=== PATIENT | female | born 1935 | race Caucasian/White ===

== ENCOUNTER 2023-08-17 11:42 | Inpatient (IN) | payer MEDICARE, OTHER, SELFPAY ==
[2023-08-17] VITALS (12 sets, daily range): BP systolic 96–159; BP diastolic 51–95; BMI 35.2; BMI 27.9
[2023-08-17 06:52] LABS: % Basophils 0.8 % (0-2); % Eosinophils 2.1 % (0-6); % Immature Granulocytes 0.5 % (0-0.5); % Neutrophils 73.6 % (42.2-75.2); Absolute Basophils 0.1 10^3/uL (0-0.2); Absolute Eosinophils 0.2 10^3/uL (0-0.7); Absolute Lymphocytes 1.4 10^3/uL (1.2-3.4); Absolute Monocytes 0.6 10^3/uL (0.1-0.6); Absolute Neutrophils 6.4 10^3/uL (1.4-6.5); Hematocrit 36.4 % (37.0-47.0); Hemoglobin 11.9 g/dL (12.0-16.0); Mean Corp Hgb Conc. 32.7 g/dL (33.0-37.0); Mean Corpuscular Hgb 27.7 pg (27.0-31.0); Mean Corpuscular Volume 84.7 fL (81.0-99.0); Mean Platelet Volume 9.6 fL (7.4-10.4); Nucleated Red Blood Cells % 0 %; Platelet Count 233 10^3/uL (130-400); Red Cell Dist. Width 14.6 % (11.5-14.5); White Blood Cell Count 8.7 10^3/uL (4.8-10.8)
--- NOTE | 2023-08-17 07:01 | ED.GENMED ---
History of Present Illness
General
Chief Complaint: Breathing Problem
Time Seen by Provider: 08/17/23 06:58
Travel History
Have you had any contact with someone who has COVID-19?: No
Do you have any symptoms of coronavirus? Fever > 100 degrees, chills, cough, shortness of breath, sore throat, loss of taste or smell, muscle aches, or headache?: No
History of Present Illness
History of Present Illness:
HPI: Patient presents due to shortness of breath. She does diastolic CHF, COPD, and A-fib. She has had shortness of breath for several months and seem to be a worse overnight. She is compliant with taking Lasix 40 mg twice daily. She in known to
Dr. Grant. She also describes some vague epigastric discomfort described as cramping. Son feels that she is near her dry weight.
EXAM:
GENERAL: Well appearing in no distress
HEENT: Moist oral mucosa
CARDIOVASCULAR: No murmurs, normal heart rate, irregular rhythm, No chest wall tenderness
PULMONARY: Very mild respiratory distress with some conversational dyspnea, breath sounds are decreased at the bases with some faint rales
ABDOMEN: Soft with no peritoneal signs, no tenderness
NEUROLOGIC: Excellent strength all extremities, no coordination deficits
PSYCHIATRIC: Appropriate mental status, normal insight and judgement
EXTREMITIES: Nontender, trace if any edema, moves all extremities equally
SKIN: No rash, no lesions
TIME OF INITIAL ENCOUNTER: 7:10 AM
NUMBER AND COMPLEXITY OF PROBLEMS ADDRESSED AT THE ENCOUNTER
� Chronic conditions affecting care: COPD, chronic diastolic CHF, A-fib, high blood pressure, hyperlipidemia, diabetes
� Acute Exacerbation and/or Progression of Chronic Illness: This is an acute problem
� Differential Diagnosis includes: CHF exacerbation, COPD exacerbation, multifactorial dyspnea, anemia
AMOUNT AND/OR COMPLEXITY OF DATA TO BE REVIEWED AND ANALYZED
� I performed an independent evaluation of and my interpretation is:
EKG: A-fib [address] abnormality
CT:
X-rays: Chest x-ray unremarkable
Laboratory Studies: CBC unremarkable, BUN is 26, creatinine 0.8, bicarb slightly high at 31 troponin is unremarkable, BNP is 1120
Other:
� Review of other/old records: Echo last year showed EF of 55 to 60%
� Clinical information was obtained by an independent historian: I spoke to son at bedside
� Prescriptions/Medications Considered but not given:
� Further testing considered but not performed:
RISK OF COMPLICATIONS AND/OR MORBIDITY OR MORTALITY OF PATIENT MANAGEMENT
� Social determinants of health affecting care: Lives at home
� Discussion with other providers: Hospitalist for admission at 9 AM; I did notify Dr. Zhou earlier for consultation
� Escalation of care including admission/observation vs risk of discharge considered: The patient does desat to about 88% on room air and therefore nurse placed her on oxygen. Her shortness of breath is likely multifactorial
related to both CHF and COPD therefore ordered IV Lasix and IV Solu-Medrol. She appears fairly comfortable at rest but does have some conversational dyspnea at rest and all symptoms worsen with exertion. She has an upcoming wedding to go to this
coming Thursday.
Past History
Past History
ED Past Medical History: Arrthythmia (Paroxysmal AFib), CVA (TIA) and Other (Kidney stones hypertension, hyperlipidemia)
ED Past Surgical History: Appendectomy, Gynecological (Hysterectomy) and Other (Hernia)
Social History
Tobacco: Non-smoker
Alcohol: None
Personal:
Living: with family
Family History
Family History: Other (Peptic ulcer disease, father with a pacemaker)
Phy Exam
Physical Exam
Physical Exam:
See HPI
Scores
Heart Failure Risk
Heart Failure Risk Score: Not Applicable
Course
Orders/Labs/Results
Orders:
Orders
08/17/23 06:09
Electrocardiogram (*1) Urgent
Reason for Study: Shortness of Breath
EKG- Treatment ONCE
08/17/23 06:27
BNP [NT-proBNP] Urgent
CMP [Comprehensive Metabolic Panel] Urgent
Complete Blood Count/With Diff Urgent
Troponin I Urgent
Comment: ADD ON
08/17/23 06:35
Add On- LAB Urgent
Tests Added?: troponin
08/17/23 07:15
CR Chest - 2 Views Urgent
Comment:
Reason For Exam: sob
08/17/23 08:44
Oxygen Therapy [O2 Therapy] [RESP] Urgent
Nasal Cannula Liter Flow: 2 LPM
Titrate/Wean O2 to maintain O2 sat greater than (%): 90
Special Instructions:
08/17/23 08:54
Furosemide [Lasix] 40 mg IV NOW STA
MethylPREDNISolone PF [Solu-Medrol Pf] 125 mg IV NOW STA
Abnormal Lab Results
08/17/23
06:27
Hgb 11.9 L g/dL
(12.0-16.0)
Hct 36.4 L %
(37.0-47.0)
MCHC 32.7 L g/dL
(33.0-37.0)
RDW 14.6 H %
(11.5-14.5)
Lymphocytes % 16.0 L %
(20.5-51.1)
Carbon Dioxide 31 H mmol/L
(22-30)
BUN 26 H mg/dl
(7-17)
Glucose 154 H mg/dl
(70-99)
AST 76 H U/L
(14-36)
ALT 52 H U/L
(0-35)
Alkaline Phosphatase 129 H U/L
(38-126)
08/17/23 06:27
08/17/23 06:27
Vital Signs
Initial and Last Documented VS:
Initial Vital Signs
Temp Pulse Resp BP Pulse Ox
97.9 F 90 24 144/77 93
08/17/23 06:04 08/17/23 06:04 08/17/23 06:04 08/17/23 06:04 08/17/23 06:04
Last Documented Vital Signs
Temp Pulse Resp BP Pulse Ox
97.9 F 82 20 120/75 85
08/17/23 06:04 08/17/23 08:30 08/17/23 08:30 08/17/23 07:00 08/17/23 08:30
*Critical Care Note
Total Time (30-74mins, 75-104mins- exclusive of procedures): Not Applicable
ED Attending Note
-
Portions of this chart may have been created with voice recognition software.� Occasional wrong word or��sound alike� substitutions may have occurred due to the inherent limitations of voice recognition software.
Discharge Plan
Departure
Patient Disposition: Admit
Date of Disposition: 08/17/23
Time of Disposition: 08:57
Presentation/result/management discussed w/ accepting MD/DO: Hospitalist
Patient with high blood pressure during this ER visit?: Yes
Discharge Problem:
Shortness of breath
Prescriptions:
No Action
amlodipine 5 MG tablet
2.5 mg PO DAILY
esomeprazole magnesium [Nexium] 40 MG capsule,delayed release(DR/EC)
20 mg PO DAILY
metoprolol succinate 50 MG tablet extended release 24 hr
50 mg PO BID
acetaminophen [Tylenol Extra Strength] 500 MG tablet
1,000 mg PO Q6HPRN PRN (Reason: headache/mild pain)
multivitamin with folic acid [Tab-A-Anabell] 1 TABLET tablet
1 tab PO DAILY
albuterol sulfate 1 PUFF HFA aerosol inhaler
2 puff inhalation Q4HPRN PRN (Reason: sob)
ezetimibe [Zetia] 10 MG tablet
10 mg PO HS
L.acidoph, paracasei,B. lactis 1 EACH capsule
1 ea PO DAILY
furosemide 40 MG tablet
40 mg PO BID
(DME) Blood Glucose Test 1 EACH strip
1 ea MC BID Qty: 100 0RF
Rx Instructions:
CONTOUR NEXT glucose monitor to test fasting and alternate 2 hours after a meal
(DME) lancets 1 EACH misc
1 ea MC BID Qty: 100 0RF
Rx Instructions:
Contour Next lancets to test BID in pattern provided
potassium 99 mg Tablet
99 mg PO DAILY
alprazolam 0.25 mg Tablet
0.25 mg PO TID PRN (Reason: anxiety)
calcium carbonate [Tums 500] 500 mg calcium (1,250 mg) Tablet,Chewable
500 mg PO DAILY
magnesium 250 mg Tablet
500 mg PO DAILY
fluticasone propionate 50 mcg/actuation [place],Suspension
1 spray INTRANASAL DAILY
rosuvastatin [Crestor] 10 mg Tablet
10 mg PO DAILY
Xarelto 20 mg Tablet
20 mg PO DAILY
Vitamin D (with calcium)
50 mcg PO DAILY
Referrals:
Michael Villafuerte I., DO [Family Provider] -
Interventions
Interventions:
*Risk Screen - Suicide Last Done: 08/17/23 06:04
*General Assessment Last Done: 08/17/23 06:18
*Neglect/Abuse Screening Last Done: 08/17/23 06:04
ED- Fall Risk Assessment Last Done: 08/17/23 06:36
*ED COVID-19 Vaccine History Last Done: 08/17/23 06:18
ED- Cardiac Assessment Last Done: 08/17/23 06:36
ED- Pulmonary Assessment Last Done: 08/17/23 06:36
[2023-08-17 07:11] LABS: ALT (SGPT) 52 U/L (0-35); AST (SGOT) 76 U/L (14-36); Albumin 4.4 g/dl (3.5-5.0); Alkaline Phosphatase 129 U/L (38-126); Blood Urea Nitrogen 26 mg/dl (7-17); Calcium 9.4 mg/dl (8.4-10.2); Carbon Dioxide 31 mmol/L (22-30); Chloride 98 mmol/L (98-107); Estimated Creatinine Clearance 41 ml/min; Glucose 154 mg/dl (70-99); NT-proBNP 1120 pg/ml; Potassium 3.7 mmol/L (3.5-5.1); Sodium 138 mmol/L (135-145); Total Bilirubin 1.2 mg/dl (0.2-1.3); Troponin I < 0.012 ng/ml; eGFR > 60.00
[2023-08-17] MEDS: LASIX 40 MG IV ×2 (09:21→18:03)
[2023-08-17] MEDS: SOLU-MEDROL PF 125 MG IV (09:21)
--- NOTE | 2023-08-17 10:36 | CON.CAR ---
Addendum entered and electronically signed by Pardeep Zhou MD 08/17/23 12:17:
I saw and examined the patient.
The HORTICULTURE SUPERINTENDENT or PA's note was reviewed and I agree with the note.
Comment: General: Well developed, well nourished in NAD.
Neck: Supple, no JVD, HJR, carotids +2 B/L, no bruits bilaterally.
Heart: Non displaced PMI, RRR, no murmurs, No S3, S4, no rubs.
Lungs: Clear to auscultation bilaterally, no wheeze, rhonchi, rubs bilaterally,
normal expiratory phase.
Extremities: No clubbing, cyanosis or edema bilaterally.
Neuro: Grossly nonfocal, awake, alert and oriented x3.
Ellie has a history of chronic diastolic CHF, permanent A-fib, CAD with prior stenting, hypertension, hyperlipidemia, diabetes, TIA. She came to the ER with worsening shortness of breath. She has short breath of the past month with minimal
activity and feels exhausted. She had corn beef or seen patties day yesterday and last night had increasing shortness of breath. She woke up this morning was more short of breath and came to the ER. She is admitted for acute diastolic CHF. Note
she was noted to have pulse ox of 88% with ambulation on room air. She got IV Lasix in the ER and has had good urine output.
Will admit for acute diastolic CHF. Will recheck echocardiogram. She might need higher dose of oral Lasix on discharge. Discussed with ER staff as well as patient's son at bedside in detail. Discussed with hospitalist.
Original Note:
Consultation
Consultation Request
Date/Time Consultation Requested: 08/17/2023
Date/Time Consultation Performed: 08/17/2023 at 0945
Requesting Provider: Dr. Tang
Performing Provider: Dr. Zhou
Reason for Consultation: CHF
Medical History
-
History of Present Illness:
HPI: Ellie is an 88 year old female with PMH of chronic HFpEF, permanent atrial fibrillation, CAD with prior stenting, mild to moderate MR, hypertension, hyperlipidemia, diabetes mellitus type 2, and prior TIA. She presented to ER for
evaluation of worsening shortness of breath. She states she has had some shortness of breath with exertion for the past month. She states with minimal activity she has shortness of breath and feels 'exhausted'. Yesterday, had saltier meal of
corned beef for [employer] day, and states last night she had increased shortness of breath. She woke up early in the morning and felt more short of breath and came to ER for evaluation. In ER, her proBNP was elevated at 1120. She was also
noted to have oxygen desaturations with ambulation. She was given a dose of IV Lasix in the emergency room and has had good urine output with this. She has been admitted was admitted for further workup and evaluation and cardiology consulted given
evidence of acute heart failure. She reports she feels well currently. She does not weigh herself regularly at home, however weight in the ER is up approximately 4 pounds compared to last office visit. She remains in rate controlled atrial
fibrillation and is asymptomatic with this.
PMH:
Chronic HFpEF
Permanent atrial fibrillation
Chronic Xarelto anticoagulation
CAD
s/p LAD PCI 09/01/2017
remote D1 stenting x2 in [place]
Mild-moderate MR
HTN
HLD
DM2
h/o TIA
Past Medical History
Past Medical History: Other (In HPI)
Past Surgical History: Appendectomy, Cardiac (Prior PCI of LAD and D1), Gynecological (Hysterectomy) and Other
Social History
Tobacco: Non-Smoker
Alcohol: None
Drug: None
Family History
Family History: CAD
Allergies / Home Medications
Allergy/AdvReac Type Severity Reaction Status Date / Time
hazelnut Allergy COULDN'T Verified 08/17/23 06:08
BREATHE/CHOKING
meperidine HCl [From Demerol] Allergy Swelling Verified 08/17/23 06:08
nut - unspecified Allergy COULDN'T Verified 08/17/23 06:08
BREATHE/CHOKING
Penicillins Allergy Hives Verified 08/17/23 06:08
environmental allergies Allergy nasal Uncoded 08/17/23 06:08
symptoms
smoke Allergy smoke Uncoded 08/17/23 06:08
Medication Instructions Recorded Confirmed Type
esomeprazole magnesium 40 mg 20 mg PO DAILY Gastrointestinal 11/30/13 08/17/23 History
capsule,delayed release (Nexium) Issue
acetaminophen 500 mg tablet 1,000 mg PO Q6HPRN PRN 12/11/15 08/17/23 History
(Tylenol Extra Strength) headache/mild pain
metoprolol succinate 50 mg 50 mg PO BID Blood Pressure 12/11/15 08/17/23 History
tablet,extended release 24 hr
multivitamin with folic acid 400 1 tab PO NOON Supplement 12/11/15 08/17/23 History
mcg tablet (Tab-A-Anabell)
L.acidoph, paracasei,B. lactis 10 1 ea PO DAILY Gastrointestinal 10/31/17 08/17/23 History
billion cell capsule Issue
albuterol sulfate 90 mcg/actuation 2 puff inhalation R Q4HPRN PRN sob 10/31/17 08/17/23 History
aerosol inhaler
ezetimibe 10 mg tablet (Zetia) 10 mg PO HS High Cholesterol 10/31/17 08/17/23 History
furosemide 40 mg tablet 40 mg PO BID Fluid 10/31/17 08/17/23 History
Retention/Swelling
alprazolam 0.25 mg tablet 0.25 mg PO TID PRN anxiety 08/17/23 08/17/23 History
amlodipine 2.5 mg tablet (Norvasc) 2.5 mg PO DAILY Blood Pressure 08/17/23 08/17/23 History
calcium carbonate 500 mg calcium 500 mg PO BIDPRN PRN gerd 08/17/23 08/17/23 History
(1,250 mg) chewable tablet
fluticasone propionate 50 1 spray intranasal DAILY Congestion 08/17/23 08/17/23 History
mcg/actuation nasal
spray,suspension
magnesium 250 mg tablet 500 mg PO NOON Electrolyte 08/17/23 08/17/23 History
Repletion
potassium 99 mg tablet 99 mg PO NOON Supplement 08/17/23 08/17/23 History
rivaroxaban 20 mg tablet (Xarelto) 20 mg PO QPM Blood Clot 08/17/23 08/17/23 History
Prevention/Tx
rosuvastatin 10 mg tablet (Crestor) 10 mg PO QPM High Cholesterol 08/17/23 08/17/23 History
Review of Systems
-
History Source: Patient and Family (Son at bedside)
All other systems: Negative unless noted
Physical Exam
Vital Signs
Temp Pulse Resp BP Pulse Ox
97.9 F 81 20 130/90 95
08/17/23 06:04 08/17/23 10:10 08/17/23 10:10 08/17/23 10:10 08/17/23 10:10
Lab Results
08/17/23 06:27
08/17/23 06:27
Troponin I < 0.012 ng/ml 08/17/23 06:27
Nzc-R-Nubwjnkubpv Pept 1120 pg/ml 08/17/23 06:27
Physical Exam
General: Well Developed, Well Nourished and No Apparent Distress
HEENT: Normocephalic, Anicteric and Moist Mucous Membranes
Respiratory: Clear and Non Labored Respirations
Cardiac: S1/S2, Irregular Rhythm and Murmur
Musculoskeletal: No Clubbing, No Cyanosis and Edema
Skin: Warm and Dry
Neuro: AO x 3 and Nonfocal/Grossly Intact
Psych: Calm
Impression / Plan
-
PCP: Dr. Villafuerte
Building Drafting Officer: Dr. Ginger Grant
Impression:
Presented with SOB
Acute on chronic HFpEF
Permanent atrial fibrillation
Chronic Xarelto anticoagulation
CAD
s/p LAD PCI 09/01/2017
remote D1 stenting x2 in [place]
Mild-moderate MR
HTN
HLD
DM2
h/o TIA
Echo 08/21/2022: EF 55 to 60%, mild concentric LVH, mild to moderate MR, aortic sclerosis without stenosis, mild to moderate TR, moderate pulmonary hypertension, 57 mmHg systolic
Echo 08/17/2023: Study pending
Plan:
-Presented with SOB. Desaturations noted with ambulation. Admitted w/ acute heart failure.
-Given a dose of IV lasix 40mg in ER, responding well w/ good urine output. Will continue IV lasix 40mg BID while admitted.
-As OP has been compliant with her PO lasix, however does note she will occasionally have dietary indiscretion w/ higher sodium meals.
-CHF education
-Creat stable at 0.8. Follow with diuresis. Follow daily weights, I&Os.
-Echo 07/2022 with preserved EF and mild-mod valvular disease. Repeat while admitted.
-Would consider SGLT2 inhibitor. Of note, previously patient has declined.
-Remains in rate controlled atrial fibrillation on EKG and on review of telemetry.
-Continue Toprol 50mg BID and Xarelto 20mg daily.
-Continue crestor and zetia.
HPI: Ellie is an 88 year old female with PMH of chronic HFpEF, permanent atrial fibrillation, CAD with prior stenting, mild to moderate MR, hypertension, hyperlipidemia, diabetes mellitus type 2, and prior TIA. She presented to ER for
evaluation of worsening shortness of breath. She states she has had some shortness of breath with exertion for the past month. She states with minimal activity she has shortness of breath and feels 'exhausted'. Yesterday, had saltier meal of
corned beef for [employer] day, and states last night she had increased shortness of breath. She woke up early in the morning and felt more short of breath and came to ER for evaluation. In ER, her proBNP was elevated at 1120. She was also
noted to have oxygen desaturations with ambulation. She was given a dose of IV Lasix in the emergency room and has had good urine output with this. She has been admitted was admitted for further workup and evaluation and cardiology consulted given
evidence of acute heart failure. She reports she feels well currently. She does not weigh herself regularly at home, however weight in the ER is up approximately 4 pounds compared to last office visit. She remains in rate controlled atrial
fibrillation and is asymptomatic with this.
Data Reviewed
-
EKG: Tracing Personally Visualized and interpreted
Radiology: Report Reviewed by me
Labs: Labs Reviewed by me
Old Records: Reviewed
--- NOTE | 2023-08-17 11:23 | HPS.HSE ---
Family Physician
-
Family Physician: Michael Villafuerte
Chief Complaint
-
Increasing shortness of breath for the last several days and refer at least the last month if not longer.
History of Present Illness
88-year-old female with a known history of preserved ejection fraction heart failure permanent atrial fibrillation on Xarelto. Also history of coronary artery disease was stenting and moderate mitral regurg with underlying hypertension
hyperlipidemia and type 2 diabetes mellitus for which she recently had her metformin discontinued due to drop in blood sugars. She is been having increasing shortness of breath in the last several days and describes it as worsening in the last
month 'I have been using 3 pillows for years however.' Today she felt increasing shortness of breath and according to her son was 'exhausted' she apparently had a very salty meal for her at [facility] meal which included corn beef. She has
been compliant to her furosemide dosing and her other medications otherwise. She has not had any significant weight gain in fact she may have lost some weight in the last several weeks. She was given a parental dosage of furosemide here in the
emergency room and urinated a very dilute urine and feels a little better she is on presently 2 L nasal flow oxygen at 95% pulse ox.
BNP is elevated above her baseline of 779 up to 1100/chest x-ray did not show evidence of pleural effusion or edema
Medical History
Past Medical History
Past Medical History: Reports Arrhythmia (Permanent atrial fibrillation), Asthma (Prior episodes of bronchitis requiring hospitalization), CAD (LAD PCI 2018), CHF (Mild to moderate MR) and NIDDM
Past Surgical History: Reports Cardiac
Social History
Tobacco: Non-smoker
Alcohol: None
Drug: None
Personal:
Living: With Family
Family History
Family History: Not pertinent
Allergies / Home Medications
Allergies reflects when Allergies were last updated in [employer].
Home Medications with original date entered in [employer]
Allergy/Medication List:
Allergies
Allergy/AdvReac Type Severity Reaction Status Date / Time
hazelnut Allergy COULDN'T Verified 08/17/23 06:08
BREATHE/CHOKING
meperidine HCl [From Demerol] Allergy Swelling Verified 08/17/23 06:08
nut - unspecified Allergy COULDN'T Verified 08/17/23 06:08
BREATHE/CHOKING
Penicillins Allergy Hives Verified 08/17/23 06:08
environmental allergies Allergy nasal Uncoded 08/17/23 06:08
symptoms
smoke Allergy smoke Uncoded 08/17/23 06:08
Home Medications
esomeprazole magnesium 40 mg capsule,delayed release (Nexium) 20 mg PO DAILY Gastrointestinal Issue 11/30/13
acetaminophen 500 mg tablet (Tylenol Extra Strength) 1,000 mg PO Q6HPRN PRN headache/mild pain 12/11/15
metoprolol succinate 50 mg tablet,extended release 24 hr 50 mg PO BID Blood Pressure 12/11/15
multivitamin with folic acid 400 mcg tablet (Tab-A-Anabell) 1 tab PO NOON Supplement 12/11/15
L.acidoph, paracasei,B. lactis 10 billion cell capsule 1 ea PO DAILY Gastrointestinal Issue 10/31/17
albuterol sulfate 90 mcg/actuation aerosol inhaler 2 puff inhalation R Q4HPRN PRN sob 10/31/17
ezetimibe 10 mg tablet (Zetia) 10 mg PO HS High Cholesterol 10/31/17
furosemide 40 mg tablet 40 mg PO BID Fluid Retention/Swelling 10/31/17
alprazolam 0.25 mg tablet 0.25 mg PO TID PRN anxiety 08/17/23
amlodipine 2.5 mg tablet (Norvasc) 2.5 mg PO DAILY Blood Pressure 08/17/23
calcium carbonate 500 mg calcium (1,250 mg) chewable tablet 500 mg PO BIDPRN PRN gerd 08/17/23
fluticasone propionate 50 mcg/actuation nasal spray,suspension 1 spray intranasal DAILY Congestion 08/17/23
magnesium 250 mg tablet 500 mg PO NOON Electrolyte Repletion 08/17/23
potassium 99 mg tablet 99 mg PO NOON Supplement 08/17/23
rivaroxaban 20 mg tablet (Xarelto) 20 mg PO QPM Blood Clot Prevention/Tx 08/17/23
rosuvastatin 10 mg tablet (Crestor) 10 mg PO QPM High Cholesterol 08/17/23
Review of Systems
-
History Source: Patient and Family
Constitutional: Reports Weight Gain, Weight Loss, Fatigue and Sleep Disturbance
EENT: Reports See HPI
Respiratory: Reports See HPI
Cardiac: Reports See HPI
Abdomen/GI: Reports No Symptoms
: Reports No Symptoms
Musculoskeletal: Reports No Symptoms
Physical Exam
Vital Signs
Vital Signs
Temp Pulse Resp BP Pulse Ox
97.9 F 81 20 139/95 92
08/17/23 06:04 08/17/23 10:10 08/17/23 10:10 08/17/23 11:05 08/17/23 11:05
Physical Exam
General: Well Developed
HEENT: NormoCephalic
Respiratory: Clear
Cardiac: S1/S2, Irregular Rhythm and Murmur
GI: Soft and Non Tender
Musculoskeletal: Other (Trace peripheral edema)
Neuro: Awake, Alert, Oriented and AO x 3
Psych: Calm
Laboratory Results
-
08/17/23 06:27
08/17/23 06:27
Laboratory Results
Total Bilirubin 1.2 mg/dl (0.2-1.3) 08/17/23 06:27
AST 76 U/L (14-36) H 08/17/23 06:27
ALT 52 U/L (0-35) H 08/17/23 06:27
Alkaline Phosphatase 129 U/L (38-126) H 08/17/23 06:27
Troponin I < 0.012 ng/ml 08/17/23 06:27
Data Reviewed
-
Critical Care Time (in minutes): 56
Diagnostic Radiology: Report Reviewed by me (No pleural effusion on chest x-ray nor edema) and Discussed with Physician
Medical Tests (Nuc Med, Echo, EKG etc): Image Personally Visualized and interpreted and Report Reviewed by me (EKG with ischemic T wave changes in inferior lateral leads)
Lab Data: Labs Reviewed by me (Initial troponin normal proBNP of 1120)
Impression/Plan
-
IMPRESSION:
88-year-old female with a known history of preserved ejection fraction heart failure permanent atrial fibrillation on Xarelto. Also history of coronary artery disease was stenting and moderate mitral regurg with underlying hypertension
hyperlipidemia and type 2 diabetes mellitus for which she recently had her metformin discontinued due to drop in blood sugars. She is been having increasing shortness of breath in the last several days and describes it as worsening in the last
month 'I have been using 3 pillows for years however.' Today she felt increasing shortness of breath and according to her son was 'exhausted' she apparently had a very salty meal for her at [employer] which included corn beef. She has
been compliant to her furosemide dosing and her other medications otherwise. She has not had any significant weight gain in fact she may have lost some weight in the last several weeks. She was given a parental dosage of furosemide here in the
emergency room and urinated a very dilute urine and feels a little better she is on presently 2 L nasal flow oxygen at 95% pulse ox.
BNP is elevated above her baseline of 779 up to 1100/chest x-ray did not show evidence of pleural effusion or edema
Increasing dyspnea on exertion with hypoxic respiratory failure
-Acute on chronic HFpEF (most recent 2D echocardiogram with 55% EF and mild to moderate MR obtained in July 2022 reviewed)
-Will place on IV diuresis 40 mg Lasix twice daily
-Sodium restricted
-Daily weights
-Repeat 2D echocardiogram
-Cardiology consult
Permanent atrial fibrillation
-Presently rate controlled
-Continue beta-blockade
-Continue Xarelto
Coronary artery disease with PCI to LAD in 2018
-Continue statin
Prior history of COPD
-May be contributing
-Would hold off on systemic steroids
-Continue nebulizers as needed
-Pulmonary consultation placed
Type 2 diabetes mellitus
-Recently taken off last course of metformin
-Check A1c and place on sign scale coverage
Anxiety overlay
-May be contributing to her dyspnea
-Continue alprazolam as needed
DVT prophylaxis with Xarelto
Full CODE STATUS
--- NOTE | 2023-08-17 12:20 | PTCARENOTE ---
rn hospital coordinator- Patient requesting to take all medications with food.
[2023-08-17 12:24] LABS: Troponin I < 0.012 ng/ml
[2023-08-17 12:44] LABS: Glucose - Point of Care 165 mg/dl (70-99)
[2023-08-17] MEDS: NOVOLOG FLEXPEN-LOW RESISTANCE 1 UNITS SC (13:01)
--- NOTE | 2023-08-17 14:59 | CON.PUL ---
Consultation
Consultation Request
Date/Time Consultation Requested: 08/17/2023
Date/Time Consultation Performed: 08/17/2023
Reason for Consultation: Shortness of breath
Medical History
-
History of Present Illness:
History obtained from the patient, son at the bedside, reviewing hospital records and outpatient records. 88-year-old pleasant female who has history of chronic shortness of breath. Patient states that recently she was more short of breath. She
attributes to possible salty dinner at her son's house Thursday night but is not sure. Was recently told weight was down 10 pounds by her tractor trailer driver. She also describes epigastric discomfort, cramping. She states it happens with activity but she
thinks it is diet related. She feels like she is always smelling smoke. She denies any dysphagia, choking, fevers, falls, syncope. She sleeps with head of bed elevated few pillows. She is compliant with her Lasix therapy. Of note she was on
home oxygen in the past, self discontinued due to the machine being too loud. Upon arrival to [facility], afebrile, pulse 90, breathing at 24, pressure 144/77, 93% on room air. She was noted to desaturate to 85% on walking to the bathroom
in the ED. Chest x-ray reveals chronic scarring, no acute findings per my review. We are asked to comment on her pulmonary process that she is being admitted for hypoxia, possible heart failure
Patient thinks that it was from corn beef sandwiches and corn beef or [employer] they may have led to her retaining fluid.
PMH: Hypertension, atrial fibrillation, coronary disease, history of heart failure, mitral regurgitation, suspected sleep apnea, GERD, diabetes, sick sinus syndrome, history of stroke/TIA, restrictive lung disease, hypoxia, not on home oxygen
(refused). History of appendectomy, hysterectomy, stent placement, epidurals involving the lumbar spine, spinal stenosis with chronic back pain.
Past Medical History
Past Medical History: None (See above)
Past Surgical History: None (See above)
Social History
Tobacco: Non-smoker
Alcohol: None
Drug: None
Personal:
Living: Alone
Employment: Retired (Dress maker)
Family History
Family History: Reviewed & Not Pertinent
Allergies / Home Medications
Allergies
Allergy/AdvReac Type Severity Reaction Status Date / Time
hazelnut Allergy COULDN'T Verified 08/17/23 06:08
BREATHE/CHOKING
meperidine HCl [From Demerol] Allergy Swelling Verified 08/17/23 06:08
nut - unspecified Allergy COULDN'T Verified 08/17/23 06:08
BREATHE/CHOKING
Penicillins Allergy Hives Verified 08/17/23 06:08
environmental allergies Allergy nasal Uncoded 08/17/23 06:08
symptoms
smoke Allergy smoke Uncoded 08/17/23 06:08
Home Medications
Medication Instructions Recorded Confirmed Last Taken Type
esomeprazole magnesium 40 mg 20 mg PO DAILY Gastrointestinal 11/30/13 08/17/23 08/17/23 History
capsule,delayed release (Nexium) Issue
acetaminophen 500 mg tablet 1,000 mg PO Q6HPRN PRN 12/11/15 08/17/23 12/09/15 History
(Tylenol Extra Strength) headache/mild pain
metoprolol succinate 50 mg 50 mg PO BID Blood Pressure 12/11/15 08/17/23 08/16/23 History
tablet,extended release 24 hr
multivitamin with folic acid 400 1 tab PO NOON Supplement 12/11/15 08/17/23 08/16/23 History
mcg tablet (Tab-A-Anabell)
L.acidoph, paracasei,B. lactis 10 1 ea PO DAILY Gastrointestinal 10/31/17 08/17/23 08/16/23 History
billion cell capsule Issue
albuterol sulfate 90 mcg/actuation 2 puff inhalation R Q4HPRN PRN sob 10/31/17 08/17/23 10/31/17 08:00 History
aerosol inhaler
ezetimibe 10 mg tablet (Zetia) 10 mg PO HS High Cholesterol 10/31/17 08/17/23 08/16/23 History
furosemide 40 mg tablet 40 mg PO BID Fluid 10/31/17 08/17/23 08/17/23 History
Retention/Swelling
alprazolam 0.25 mg tablet 0.25 mg PO TID PRN anxiety 08/17/23 08/17/23 Unknown History
amlodipine 2.5 mg tablet (Norvasc) 2.5 mg PO DAILY Blood Pressure 08/17/23 08/17/23 08/16/23 History
calcium carbonate 500 mg calcium 500 mg PO BIDPRN PRN gerd 08/17/23 08/17/23 Unknown History
(1,250 mg) chewable tablet
fluticasone propionate 50 1 spray intranasal DAILY Congestion 08/17/23 08/17/23 Unknown History
mcg/actuation nasal
spray,suspension
magnesium 250 mg tablet 500 mg PO NOON Electrolyte 08/17/23 08/17/23 08/16/23 History
Repletion
potassium 99 mg tablet 99 mg PO NOON Supplement 08/17/23 08/17/23 08/16/23 History
rivaroxaban 20 mg tablet (Xarelto) 20 mg PO QPM Blood Clot 08/17/23 08/17/23 08/16/23 History
Prevention/Tx
rosuvastatin 10 mg tablet (Crestor) 10 mg PO QPM High Cholesterol 08/17/23 08/17/23 08/16/23 History
Review of Systems
-
All other systems: Negative unless noted
Vitals / Labs / Diagnostic Testing
Vital Signs
Temp Pulse Resp BP Pulse Ox
97.9 F 87 19 106/61 92
08/17/23 06:04 08/17/23 14:15 08/17/23 14:15 08/17/23 14:13 08/17/23 12:01
Lab Data
08/17/23 06:27
08/17/23 06:27
Diagnostic Testing:
Physical Exam
-
HEENT: Normocephalic, Anicteric and Other (Narrow posterior oropharynx)
Cardiovascular: S1/S2, Irregular Rhythm, Murmur (n), Rub (n) and Peripheral Edema (tr)
Respiratory: Wheeze, Rales (Mild at base), Rhonchi (n) and Non-Labored Respirations
GI: Soft, Non Distended, Tender (Mild mid-epigastric tenderness) and Normal Bowel Sounds
Neurology: Awake, Alert and No Motor Deficits (Observed ambulating in the room on oxygen)
Skin: Other (Few scattered bruises, no skin rash)
General: Comfortable (Conversant)
Assessment
-
88-year-old female with history of documented hypoxia in the past on home oxygen, returned due to loud machine, strongly suspected sleep disordered breathing, history of heart failure, chronic back pain, baseline DLCO 39%, presents with slowly
progressive shortness of breath. Blood work reveals mild transaminitis, elevated proBNP. Chest x-ray with chronic interstitial changes, no acute findings. We are asked to comment on pulmonary process 08/17/23
Acute hypoxic respiratory insufficiency
85% with ambulation on room air
Bilateral interstitial changes, per chest x-ray
Appears chronic per my review
Elevated proBNP
Mild transaminitis
Mild to moderate MR/PA pressure 57
Moderate pulmonary hypertension
Per echo July 2022
Conditions present prior to admission
Coronary disease with history of LAD stent
Hypertension/hyperlipidemia
Diabetes
History of TIA
History of hypoxia in the past, was on home oxygen
Returned due to noisy machine
Strongly suspected sleep apnea
Plan/recommendations
At this time, patient appears to be comfortable. She is asking when she can go home. She is ambulating in the room on oxygen
She is somewhat of it is difficult historian as she is focusing on the fact that she is feeling better but appears to have been short of breath at least over the last few days if not longer
Patient states she was recently told she lost 10 pounds
Reviewed outpatient pulmonary records, documented hypoxia in the past on 2 L, patient return oxygen unit in the past because of the lab machine
DLCO severely reduced at 39% as outpatient in [address] imaging available for review but chest x-ray suggest mild patchy interstitial changes and areas of granulomatous disease, no acute findings per my review
Moving forward, do not suspect primary pulmonary process at this time
For now we will continue with assessing following Lasix therapy which she received in the ED
Cardiology has been consulted, echocardiogram ordered
Patient may have had increased salty meal over the weekend with [employer]
Will consult case management as patient would benefit from home oxygen
Discussed that patient will have concentrator if eligible and portable unit
She can use the portable unit around the house and when leaving the house.
She is not sure whether she will use the nocturnal oxygen at night given the loud machine but this will be an ongoing discussion
Check nocturnal oximetry tonight on room air
Discussed positional therapy
Reviewed above at length with patient and son at bedside
We will follow
[2023-08-17] MEDS: THERAGRAN 1 TABLET PO (18:00)
[2023-08-17] MEDS: KCL 20 MEQ PO (18:00)
[2023-08-17] MEDS: XARELTO 15 MG PO (18:00)
[2023-08-17] MEDS: MAGNESIUM OXIDE 500 MG PO (18:00)
[2023-08-17] MEDS: CRESTOR 10 MG PO (18:00)
[2023-08-17] MEDS: FLUSH (NSS) 1 FLUSH IV (18:06)
[2023-08-17 18:25] LABS: Glucose - Point of Care 293 mg/dl (70-99)
[2023-08-17] MEDS: NOVOLOG FLEXPEN-LOW RESISTANCE 3 UNITS SC (18:28)
[2023-08-17] MEDS: TOPROL XL 50 MG PO (20:19)
--- NOTE | 2023-08-17 21:52 | RESPNOTE ---
nocturnal oximetry started on ra
[2023-08-17] MEDS: ZETIA 10 MG PO (21:57)
--- NOTE | 2023-08-17 23:39 | RESPNOTE ---
Patient started on 2 LPM of O2 due to saturation of 78%
[2023-08-18] VITALS (7 sets, daily range): BP systolic 101–151; BP diastolic 57–77; BMI 27.8
[2023-08-18 00:08] LABS: Glucose - Point of Care 203 mg/dl (70-99)
[2023-08-18] MEDS: NOVOLOG FLEXPEN-LOW RESISTANCE 1 UNITS SC ×2 (08:39→17:22)
[2023-08-18 08:40] LABS: Glucose - Point of Care 152 mg/dl (70-99)
[2023-08-18 08:40] LABS: Hematocrit 35.8 % (37.0-47.0); Hemoglobin 11.8 g/dL (12.0-16.0); Mean Corpuscular Volume 84.8 fL (81.0-99.0); Mean Platelet Volume 9.9 fL (7.4-10.4); Platelet Count 257 10^3/uL (130-400); Red Blood Cell Count 4.22 10^6/uL (4.20-5.40); Red Cell Dist. Width 14.4 % (11.5-14.5); White Blood Cell Count 7.9 10^3/uL (4.8-10.8)
[2023-08-18] MEDS: LASIX 40 MG IV ×2 (08:40→15:58)
[2023-08-18] MEDS: NORVASC 2.5 MG PO (08:41)
[2023-08-18] MEDS: TOPROL XL 50 MG PO ×2 (08:41→21:04)
[2023-08-18] MEDS: VISBIOME 1 CAP PO (08:42)
[2023-08-18] MEDS: PROTONIX 40 MG PO (08:42)
[2023-08-18 08:52] LABS: Troponin I < 0.012 ng/ml
[2023-08-18 09:19] LABS: Blood Urea Nitrogen 25 mg/dl (7-17); Calcium 9.4 mg/dl (8.4-10.2); Carbon Dioxide 29 mmol/L (22-30); Chloride 99 mmol/L (98-107); Estimated Creatinine Clearance 63 ml/min; Glucose 149 mg/dl (70-99); Sodium 136 mmol/L (135-145); eGFR > 60.00
[2023-08-18 09:49] LABS: TSH 0.88 uIU/ml (0.47-4.68)
--- NOTE | 2023-08-18 10:08 | W.PN.PUL3 ---
Today's Communication / Plan
-
Case management set up home oxygen, 2 L at night and with activity
Head of bed elevated
Strong suspicion for sleep apnea with patient refusing further workup
Assessment
-
88-year-old female with history of documented hypoxia in the past on home oxygen, returned due to loud machine, strongly suspected sleep disordered breathing, history of heart failure, chronic back pain, baseline DLCO 39%, presents with slowly
progressive shortness of breath. Blood work reveals mild transaminitis, elevated proBNP. Chest x-ray with chronic interstitial changes, no acute findings. We are asked to comment on pulmonary process 08/17/23
Acute hypoxic respiratory insufficiency
85% with ambulation on room air
Nocturnal oximetry abnormal
Bilateral interstitial changes, per chest x-ray
Appears chronic per my review
Elevated proBNP
Mild transaminitis
Mild to moderate MR/PA pressure 57
Moderate pulmonary hypertension
Per echo July 2022
Conditions present prior to admission
Coronary disease with history of LAD stent
Hypertension/hyperlipidemia
Diabetes
History of TIA
History of hypoxia in the past, was on home oxygen
Returned due to noisy machine
Strongly suspected sleep apnea
Plan/recommendations
At this time, patient appears to be comfortable.
Nocturnal oximetry is significantly abnormal, desaturates 70s
Symptoms primarily in the morning upon waking up
Echocardiogram with EF 70%, enlarged RV size, normal function. PA pressure 55
Mitral regurgitation moderate
Subjectively she is improved
Reviewed outpatient pulmonary records, documented hypoxia in the past on 2 L, patient return oxygen unit in the past because of the lab machine
DLCO severely reduced at 39% as outpatient in [address] imaging available for review but chest x-ray suggest mild patchy interstitial changes and areas of granulomatous disease, no acute findings per my review
Moving forward, do not suspect primary pulmonary process at this time
However, she would benefit from home oxygen. We'll have case management set up home oxygen with nocturnal oximetry at night and portable unit as needed with activity
For now we will continue with assessing following Lasix therapy which she received in the ED
Cardiology has been consulted, echocardiogram ordered
Patient may have had increased salty meal over the weekend with [employer]
Echocardiogram findings noted, pulmonary hypertension and moderate disease noted
Will consult case management as patient would benefit from home oxygen
Discussed that patient will have concentrator if eligible and portable unit
She can use the portable unit around the house and when leaving the house.
Discussed strong suspicion for sleep apnea. Patient refusing further workup for sleep apnea
Discussed positional therapy
Reviewed above at length with patient
Disposition efforts
Subjective Data
-
Date of Service:
Date of Service: August 18, 2023
Subjective:
Patient is feeling better. She does wake up in the morning with shortness of breath. She has mild cough in the morning but denies hemoptysis, chest pain, abdominal pain, nausea
Objective Data
Data Reviewed
Vital Signs / I&O / Oxygen:
Vital Signs
Temp Pulse Resp BP Pulse Ox
97.8 F 96 18 151/77 95
08/18/23 07:44 08/18/23 07:44 08/18/23 07:44 08/18/23 08:41 08/18/23 09:52
Intake and Output
08/17/23 08/18/23 08/19/23
06:59 06:59 06:59
Intake Total 720 / 720
Output Total 1880 / 1880
Balance -1160 / -1160
SaO2 95
Nasal Cannula flow liters per 2
minute
Physical Exam
General: Comfortable and Other ( large neck)
HEENT: Normocephalic and Anicteric
Cardiovascular: S1-S2, Irregular Rhythm (n), Murmur (n) and Peripheral Edema (tr)
Respiratory: Wheeze (n), Crackles (n), Rhonchi (n), Non-Labored Respirations and Stridor (n)
GI: Soft, Non Distended and Non Tender
Neurology: Awake, Alert and No Motor Deficits
Skin: Cyanosis (n), Jaundice (n) and Rash (n)
Labs/Micro/Reports
Lab Data
08/18/23 08:15
08/18/23 08:15
--- NOTE | 2023-08-18 10:29 | W.PN.HOSP.TC ---
Today's Communication/Plan
-
Continue IV diuresis/monitor BMP
Appreciate cardiology and pulmonary input
Will need home oxygen arranged at discharge
Assessment / Plan
Assessment / Plan
88-year-old female with a known history of preserved ejection fraction heart failure permanent atrial fibrillation on Xarelto.� Also history of coronary artery disease was stenting and moderate mitral regurg with underlying hypertension
hyperlipidemia and type 2 diabetes mellitus for which she recently had her metformin discontinued due to drop in blood sugars.� She is been having increasing shortness of breath in the last several days and describes it as worsening in the last
month 'I have been using 3 pillows for years however.'� Today she felt increasing shortness of breath and according to her son was 'exhausted' she apparently had a very salty meal for her at [employer] which included corn beef.� She has
been compliant to her furosemide dosing and her other medications otherwise.� She has not had any significant weight gain in fact she may have lost some weight in the last several weeks.� She was given a parental dosage of furosemide here in the
emergency room and urinated a very dilute urine and feels a little better she is on presently 2 L nasal flow oxygen at 95% pulse ox.
BNP is elevated above her baseline of 779 up to 1100/chest x-ray did not show evidence of pleural effusion or edema
Increasing dyspnea on exertion with hypoxic respiratory failure
-Acute on chronic HFpEF (most recent 2D echocardiogram with 55% EF and mild to moderate MR obtained in July 2022 reviewed)
-Will place on IV diuresis 40 mg Lasix twice daily
-Sodium restricted
-Daily weights
-Repeat 2D echocardiogram w/ mod MR/enlargedRV
-Cardiology consult
Permanent atrial fibrillation
-Presently rate controlled
-Continue beta-blockade
-Continue Xarelto
Coronary artery disease with PCI to LAD in 2018
-Continue statin
Prior history of COPD
-May be contributing
-Would hold off on systemic steroids
-Continue nebulizers as needed
-Pulmonary consultation placed
Type 2 diabetes mellitus
-Recently taken off last course of metformin
-Check A1c and place on sign scale coverage
Anxiety overlay
-May be contributing to her dyspnea
-Continue alprazolam as needed
DVT prophylaxis with Xarelto
Full CODE STATUS
Anticipated Discharge: Within 24 hours
Subjective/Interval History
-
Date of Service: August 18, 2023
Uneventful night remains on 2 L nasal flow oxygen Pulse ox saturation did drop to 78% overnight
Objective Data
-
Labs:
Laboratory Results
08/18/23
08:15
WBC 7.9
Hgb 11.8 L
Hct 35.8 L
Plt Count 257
Sodium 136
Potassium 4.0
Chloride 99
Carbon Dioxide 29
BUN 25 H
Creatinine 0.6
Glucose 149 H
Calcium 9.4
Vital Signs:
Vital Signs
Temp Pulse Resp BP Pulse Ox
97.8 F 96 18 151/77 95
08/18/23 07:44 08/18/23 07:44 08/18/23 07:44 08/18/23 08:41 08/18/23 09:52
I&O
08/17/23 08/18/23 08/19/23
06:59 06:59 06:59
Intake Total 720 / 720
Output Total 1879
Balance -1160 / -1160
Review of Systems
-
History Source: Patient
All other systems: Reviewed and negative
Constitutional: Reports No Symptoms
EENT: Reports No Symptoms Reported
Respiratory: Reports No Symptoms
Cardiac: Reports No Symptoms, Orthopnea and Other
Physical Exam
-
HEENT: Normocephalic
Respiratory: Clear to Auscultation
Cardiac: Regular Rhythm
GI: Soft, Nontender and Nondistended
Musculoskeletal: No Edema
Psych: Anxious
Data Reviewed
-
Total Time Spent with Patient (in minutes): 56
Labs: Labs Reviewed by me (Stable chemistry is)
[2023-08-18 11:39] LABS: Glucose - Point of Care 135 mg/dl (70-99)
[2023-08-18] MEDS: NOVOLOG FLEXPEN-LOW RESISTANCE SC (11:54)
[2023-08-18] MEDS: THERAGRAN 1 TABLET PO (12:07)
[2023-08-18] MEDS: MAGNESIUM OXIDE 500 MG PO (12:07)
--- NOTE | 2023-08-18 15:39 | CM ---
site acquisition manager reviewed patient's chart and met with patient and patient lives alone at [facility] [address] [facility], patient is independent with adl's and uses a walker or rollator with ambulation. Patient does not have oxygen at home,
patient did nocturnal testing for home oxygen. patient has a prescription plan and patient uses [facility] pharmacy.
PCP: Dr. Villafuerte
Plan; Home with visiting nurses, patient has selected [facility], [facility] liaison has been contacted.
--- NOTE | 2023-08-18 16:17 | W.PN.CARDCBS ---
Addendum entered and electronically signed by Enoc Bazan MD 08/18/23 18:09:
I saw and examined the patient.
The Freight Booker's note was reviewed and I agree with the note.
Comment:
GEN: No distress, awake, Ox3
HEENT: supple, anicteric, mmm
LUNGS: CTA, no wheezes/rales
CV: Irreg, S1/S2, 1/6 syst LSB, no gallop
ABD: soft, BS+, NT/ND
EXT: No edema
NEURO: Gross non-focal
SKIN: No rash
PLan:
Diuresing well. Will continue IV Lasix for another 24 hours and likely switch to oral Lasix in a.m.
Likely will need home oxygen when at home.
A-fib remains rate controlled. Continue Toprol and Xarelto
Original Note:
Today's Communication / Plan
-
Continue IV diuresis today with likely transition to oral lasix in next 24 hours
Plan is to go home with oxygen
Anticipate d/c in next 24 hours
Stressed compliance with weighing self and low sodium foods
Impression / Plan
-
PCP: Dr. Villafuerte
[facility]: Dr. Ginger Grant
Impression:
Presented with SOB
Acute on chronic HFpEF
Permanent atrial fibrillation
Chronic Xarelto anticoagulation
CAD
s/p LAD PCI 09/01/2017
remote D1 stenting x2 in [place]
Mild-moderate MR
HTN
HLD
DM2
h/o TIA
Echo 08/21/2022: EF 55 to 60%, mild concentric LVH, mild to moderate MR, aortic sclerosis without stenosis, mild to moderate TR, moderate pulmonary hypertension, 57 mmHg systolic
Echo 08/17/2023: EF 65-70, enlarged RV size. Severe left atrial dilation, moderate mitral regurgitation, moderate tricuspid regurgitation, PAP 50 to 55 mmHg
Plan:
-Presented 08/17/2023 with SOB. Desaturations noted with ambulation. Admitted w/ acute heart failure, proBNP 1120.
-Diuresed 3 to 5 pounds overnight depending on scale. Seems to be improving
-Will continue IV lasix 40mg BID while admitted. {Patient is on 40 mg p.o. twice daily at home}
-CHF education; discussed compliance with low-sodium diet
-Creat stable at 0.6. Follow with diuresis. Follow daily weights, I&Os.
-Echo this admission demonstrates preserved ejection fraction with enlarged RV, severe left atrial dilation, moderate MR and TR. These have progressed. PAP similar to prior echo at 50 to 55 mmHg
-Nocturnal oximetry is significantly abnormal, desaturates 70s. Pulmonary recommended evaluation for sleep apnea. However patient is declining
-Pulmonary recommending home oxygen; being set up through case management
-Hemoglobin A1c 7.0% taken off metformin. Would consider SGLT2 inhibitor. Of note, previously patient has declined.
-Remains in rate controlled atrial fibrillation on EKG and on review of telemetry.
-Continue Toprol 50mg BID and Xarelto 20mg daily.
-Continue crestor and zetia.
I had 25 minute conversation with patient and her sons (John and Elias) over the phone on conference call reviewing results of testing, recommendations, education about her conditions and need for follow up
HPI: Ellie is an 88 year old female with PMH of chronic HFpEF, permanent atrial fibrillation, CAD with prior stenting, mild to moderate MR, hypertension, hyperlipidemia, diabetes mellitus type 2, and prior TIA. She presented to ER for
evaluation of worsening shortness of breath. She states she has had some shortness of breath with exertion for the past month. She states with minimal activity she has shortness of breath and feels 'exhausted'. Yesterday, had saltier meal of
corned beef for [employer] day, and states last night she had increased shortness of breath. She woke up early in the morning and felt more short of breath and came to ER for evaluation. In ER, her proBNP was elevated at 1120. She was also
noted to have oxygen desaturations with ambulation. She was given a dose of IV Lasix in the emergency room and has had good urine output with this. She has been admitted was admitted for further workup and evaluation and cardiology consulted given
evidence of acute heart failure. She reports she feels well currently. She does not weigh herself regularly at home, however weight in the ER is up approximately 4 pounds compared to last office visit. She remains in rate controlled atrial
fibrillation and is asymptomatic with this.
Progress Note - [facility]
Subjective
Date of Service: August 18, 2023
Patient seen and examined. Feeling much better, still needing oxygen.
Objective
Labs:
08/18/23 08:15
08/18/23 08:15
Labs
Hgb 11.8 g/dL (12.0-16.0) L 08/18/23 08:15
Hct 35.8 % (37.0-47.0) L 08/18/23 08:15
Plt Count 257 10^3/uL (130-400) 08/18/23 08:15
Sodium 136 mmol/L (135-145) 08/18/23 08:15
Potassium 4.0 mmol/L (3.5-5.1) 08/18/23 08:15
BUN 25 mg/dl (7-17) H 08/18/23 08:15
Creatinine 0.6 mg/dL (0.6-1.0) 08/18/23 08:15
Glucose 149 mg/dl (70-99) H 08/18/23 08:15
Troponins
08/17/23 08/17/23 08/17/23
06:27 11:55 17:45
Troponin I < 0.012 < 0.012 Cancelled
08/18/23
08:15
Troponin I < 0.012
Vital Signs and I&O:
Vital Signs
Temp Pulse Resp BP Pulse Ox
97.7 F 90 16 101/57 95
08/18/23 15:48 08/18/23 15:48 08/18/23 15:48 08/18/23 15:58 08/18/23 15:48
Vital Signs
Temp Pulse Resp BP Pulse Ox
97.7 F 90 16 101/57 95
08/18/23 15:48 08/18/23 15:48 08/18/23 15:48 08/18/23 15:58 08/18/23 15:48
Intake & Output
08/16/23 08/17/23 08/18/23 08/19/23
06:59 06:59 06:59 06:59
Intake Total 720 / 720
Output Total 1880 / 1880
Balance -1160 / -1160
Physical Exam
Physical Exam
GEN: No distress, awake, Ox3
HEENT: supple, anicteric, mmm
LUNGS: CTA, no wheezes/rales; wearing oxygen
CV: Reg, S1/S2, 1/6 syst LSB murmur, no rubs or gallops
ABD: soft, BS+, NT/ND
EXT: No edema, clubbing or cyanosis
NEURO: Gross non-focal
SKIN: No rash,warm, dry
[2023-08-18 17:01] LABS: Glucose - Point of Care 183 mg/dl (70-99)
[2023-08-18] MEDS: XARELTO 15 MG PO (17:23)
[2023-08-18] MEDS: CRESTOR 10 MG PO (17:23)
[2023-08-18] MEDS: ZETIA 10 MG PO (21:04)
[2023-08-18 21:26] LABS: Glucose - Point of Care 138 mg/dl (70-99)
[2023-08-18] MEDS: XANAX 0.25 MG PO (22:41)
[2023-08-19 03:00] VITALS: BP 113/68
[2023-08-19 06:21] VITALS: BMI 28.2
[2023-08-19 07:42] LABS: Glucose - Point of Care 139 mg/dl (70-99)
[2023-08-19 07:47] VITALS: BP 112/64
[2023-08-19] MEDS: NOVOLOG FLEXPEN-LOW RESISTANCE SC (08:39)
--- NOTE | 2023-08-19 08:45 | W.PN.PUL3 ---
Today's Communication / Plan
-
Set up home oxygen, 2 L with sleep
2 L with portable tank, activity
If possible, would like to avoid prior model and make of oxygen concentrator. Patient could not tolerate noise
Positional therapy
Cardiac management
Follow-up pulmonary information left in chart
We will sign off. Please call with questions
Assessment
-
88-year-old female with history of documented hypoxia in the past on home oxygen, returned due to loud machine, strongly suspected sleep disordered breathing, history of heart failure, chronic back pain, baseline DLCO 39%, presents with slowly
progressive shortness of breath. Blood work reveals mild transaminitis, elevated proBNP. Chest x-ray with chronic interstitial changes, no acute findings. We are asked to comment on pulmonary process 08/17/23
Acute hypoxic respiratory insufficiency
85% with ambulation on room air
Nocturnal oximetry abnormal
Bilateral interstitial changes, per chest x-ray
Appears chronic per my review
Elevated proBNP
Mild transaminitis
Mild to moderate MR/PA pressure 57
Moderate pulmonary hypertension
Per echo July 2022
Conditions present prior to admission
Coronary disease with history of LAD stent
Hypertension/hyperlipidemia
Diabetes
History of TIA
History of hypoxia in the past, was on home oxygen
Returned due to noisy machine
Strongly suspected sleep apnea
Plan/recommendations
At this time, patient appears to be comfortable.
Nocturnal oximetry is significantly abnormal, desaturates 70s
Symptoms primarily in the morning upon waking up
Echocardiogram with EF 70%, enlarged RV size, normal function. PA pressure 55
Mitral regurgitation moderate
Negative fluid status noted
Subjectively she is improved
Reviewed outpatient pulmonary records, documented hypoxia in the past on 2 L, patient return oxygen unit in the past because of the lab machine
DLCO severely reduced at 39% as outpatient in [address] imaging available for review but chest x-ray suggest mild patchy interstitial changes and areas of granulomatous disease, no acute findings per my review
Moving forward
Continue with nocturnal oxygen
She will require oxygen therapy at home, 2 L while sleeping. Reviewed with case management
Also recommended head of bed elevated
Patient may have had increased salty meal over the weekend with [employer]
Echocardiogram findings noted, pulmonary hypertension and moderate disease noted
Discussed that patient will have concentrator if eligible and portable unit
Patient would like to avoid prior make and model, make too much noise, cannot tolerate
Will defer this to case management
And also like portable tank for activity at home
She can use the portable unit around the house and when leaving the house.
Discussed strong suspicion for sleep apnea. Patient refusing further workup for sleep apnea
Discussed positional therapy
Reviewed above at length with patient
Disposition efforts. Okay for discharge from pulmonary standpoint
Subjective Data
-
Date of Service:
Date of Service: August 19, 2023
Subjective:
Patient did have some issues overnight, this morning felt like she was bringing up watery mucus. She denies coughing up mucus. She denies nausea, heartburn. She thinks the Lasix made her symptoms worse. Otherwise she feels her breathing has
improved. Denies chest pain, hemoptysis. Anxious for discharge. Slept with head of bed elevated with oxygen
Objective Data
Data Reviewed
Vital Signs / I&O / Oxygen:
Vital Signs
Temp Pulse Resp BP Pulse Ox
97.8 F 76 18 112/64 95
08/19/23 07:47 08/19/23 07:47 08/19/23 07:47 08/19/23 07:47 08/19/23 07:47
Intake and Output
08/18/23 08/19/23 08/20/23
06:59 06:59 06:59
Intake Total 720 / 720 1390 / 1390
Output Total 1880 / 1880 1900 / 1900
Balance -1160 / -1160 -510 / -510
SaO2 95
Nasal Cannula flow liters per 2
minute
Physical Exam
General: Comfortable and Other ( large neck)
HEENT: Normocephalic and Anicteric
Cardiovascular: S1-S2, Irregular Rhythm (n), Murmur (n) and Peripheral Edema (tr)
Respiratory: Wheeze (n), Crackles (n), Rhonchi (n), Non-Labored Respirations and Stridor (n)
GI: Soft, Non Distended and Non Tender
Neurology: Awake, Alert and No Motor Deficits
Skin: Cyanosis (n), Jaundice (n) and Rash (n)
Labs/Micro/Reports
Lab Data
08/18/23 08:15
[2023-08-19] MEDS: NORVASC 2.5 MG PO (08:47)
[2023-08-19] MEDS: TOPROL XL 50 MG PO (08:47)
[2023-08-19] MEDS: PROTONIX 40 MG PO (08:47)
[2023-08-19] MEDS: VISBIOME 1 CAP PO (08:47)
[2023-08-19] MEDS: LASIX 40 MG IV ×2 (08:47→15:12)
[2023-08-19 09:00] LABS: Blood Urea Nitrogen 26 mg/dl (7-17); Calcium 9.1 mg/dl (8.4-10.2); Carbon Dioxide 35 mmol/L (22-30); Chloride 97 mmol/L (98-107); Estimated Creatinine Clearance 47 ml/min; Glucose 128 mg/dl (70-99); Potassium 3.7 mmol/L (3.5-5.1); Sodium 136 mmol/L (135-145); eGFR > 60.00
--- NOTE | 2023-08-19 10:05 | W.PN.CARDCBS ---
Addendum entered and electronically signed by Pardeep Zhou MD 08/19/23 16:13:
General: Well developed, well nourished in NAD.
Neck: Supple, no JVD, HJR, carotids +2 B/L, no bruits bilaterally.
Heart: Non displaced PMI, RRR, no murmurs, No S3, S4, no rubs.
Lungs: Scattered rhonchi
Extremities: No clubbing, cyanosis or edema bilaterally.
Neuro: Grossly nonfocal, awake, alert and oriented x3.I saw and examined the patient.
The SEXUAL ASSAULT COUNSELLOR or PA's note was reviewed and I agree with the note.
Comment:
Stable cardiology status for discharge. Will discharge on Lasix 60/40 dosing. Follow-up will be arranged.
Original Note:
Today's Communication / Plan
-
Continue IV lasix 40mg BID while admitted
Consider discharging on higher dose lasix 60mg in AM, 40mg in PM
Follow up visit arranged
Impression / Plan
-
PCP: Dr. Villafuerte
7Th Grade Teacher: Dr. Ginger Grant
Impression:
Presented with SOB
Acute on chronic HFpEF
Permanent atrial fibrillation
Chronic Xarelto anticoagulation
CAD
s/p LAD PCI 09/01/2017
remote D1 stenting x2 in Fl
Mild-moderate MR
HTN
HLD
DM2
h/o TIA
Echo 08/21/2022: EF 55 to 60%, mild concentric LVH, mild to moderate MR, aortic sclerosis without stenosis, mild to moderate TR, moderate pulmonary hypertension, 57 mmHg systolic
Echo 08/17/2023: EF 65-70, enlarged RV size. Severe left atrial dilation, moderate mitral regurgitation, moderate tricuspid regurgitation, PAP 50 to 55 mmHg
Plan:
-Presented 08/17/2023 with SOB and noted to desaturate w/ ambulation in ER. Admitted w/ acute heart failure, proBNP 1120.
-Diuresed 3 to 5 pounds this admission, although weight up 2 lbs overnight if accurate. Feels she is improving symptomatically.
-Will continue IV lasix 40mg BID while admitted. Consider discharging on higher dose 60mg in AM, 40mg in PM.
-Creat stable at 0.8. Check BMP 1 week after discharge.
-Echo 08/16 noted preserved EF with enlarged RV, severe left atrial dilation, moderate MR and TR
-Nocturnal oximetry is significantly abnormal, desaturates into 70s. Pulmonary following and recommended evaluation for sleep apnea.
-Pulmonary recommending home oxygen; being set up through case management.
-Hemoglobin A1c 7.0%. Taken off metformin. Would consider SGLT2 inhibitor. Of note, previously patient has declined.
-Remains in rate controlled atrial fibrillation on EKG and on review of telemetry.
-Continue Toprol 50mg BID and Xarelto 20mg daily.
-Continue crestor and zetia.
-Follow up arranged.
HPI: Ellie is an 88 year old female with PMH of chronic HFpEF, permanent atrial fibrillation, CAD with prior stenting, mild to moderate MR, hypertension, hyperlipidemia, diabetes mellitus type 2, and prior TIA. She presented to ER for
evaluation of worsening shortness of breath. She states she has had some shortness of breath with exertion for the past month. She states with minimal activity she has shortness of breath and feels 'exhausted'. Yesterday, had saltier meal of
corned beef for [employer] day, and states last night she had increased shortness of breath. She woke up early in the morning and felt more short of breath and came to ER for evaluation. In ER, her proBNP was elevated at 1120. She was also
noted to have oxygen desaturations with ambulation. She was given a dose of IV Lasix in the emergency room and has had good urine output with this. She has been admitted was admitted for further workup and evaluation and cardiology consulted given
evidence of acute heart failure. She reports she feels well currently. She does not weigh herself regularly at home, however weight in the ER is up approximately 4 pounds compared to last office visit. She remains in rate controlled atrial
fibrillation and is asymptomatic with this.
Progress Note - 7Th Grade Teacher
Subjective
Date of Service: August 19, 2023
Reports her breathing is improved.
Objective
Labs:
08/18/23 08:15
08/19/23 07:15
Labs
Hgb 11.8 g/dL (12.0-16.0) L 08/18/23 08:15
Hct 35.8 % (37.0-47.0) L 08/18/23 08:15
Plt Count 257 10^3/uL (130-400) 08/18/23 08:15
Sodium 136 mmol/L (135-145) 08/19/23 07:15
Potassium 3.7 mmol/L (3.5-5.1) 08/19/23 07:15
BUN 26 mg/dl (7-17) H 08/19/23 07:15
Creatinine 0.8 mg/dL (0.6-1.0) 08/19/23 07:15
Glucose 128 mg/dl (70-99) H 08/19/23 07:15
Troponins
08/17/23 08/17/23 08/17/23
06:27 11:55 17:45
Troponin I < 0.012 < 0.012 Cancelled
08/18/23
08:15
Troponin I < 0.012
Vital Signs and I&O:
Vital Signs
Temp Pulse Resp BP Pulse Ox
97.8 F 76 18 112/64 95
08/19/23 07:47 08/19/23 07:47 08/19/23 07:47 08/19/23 07:47 08/19/23 07:47
Vital Signs
Temp Pulse Resp BP Pulse Ox
97.8 F 76 18 112/64 95
08/19/23 07:47 08/19/23 07:47 08/19/23 07:47 08/19/23 07:47 08/19/23 07:47
Intake & Output
08/17/23 08/18/23 08/19/23 08/20/23
06:59 06:59 06:59 06:59
Intake Total 720 / 720 1390 / 1390
Output Total 1880 / 1880 1900 / 1900
Balance -1160 / -1160 -510 / -510
Physical Exam
Physical Exam
GEN: No distress, awake, alert, oriented x3
HEENT: supple, anicteric, mmm
LUNGS: CTA, no wheezes/rales; wearing oxygen
CV: Irreg, S1/S2, 1/6 syst LSB murmur
EXT: No edema, clubbing or cyanosis
NEURO: Gross non-focal
SKIN: No rash,warm, dry
--- NOTE | 2023-08-19 10:34 | W.PN.UPDATE ---
Update Note
Progress Note Update
Patient is in need of oxygen on exertion due to pulse oximetry of 91% on room air at rest; 88% on room air with exertion.
Patient was placed on 2L O2 via nasal cannula with saturation of 95%. Oxygen will help to improve hypoxemia.
Patient is mobile within the home. Albuterol therapy has been discussed and is ineffective in treating hypoxemia-related symptoms.
Oxygen will improve the patient's symptoms.
--- NOTE | 2023-08-19 11:34 | W.DS.TRANS ---
DC Summary - It Service Continuity Supervisor
-
Discharge Instructions:
Discharge Diagnosis/Procedures Acute on chronic HFpEF
COPD without exacerbation
Hypoxic respiratory insufficiency
Diet 2 Gram Sodium
Activity As tolerated
Additional Activity Set up home oxygen, 2 L with sleep
2 L with portable tank, activity
If possible, would like to avoid prior model and
make of oxygen concentrator. Patient could not
tolerate noise
Driving Restrictions As prior to admission
Other Services [facility],PT
Instructions:
Stand-Alone Forms:
Changes to Home Medications: Yes
Discharge Medications:
DC Medications w/original date entered in [facility]
esomeprazole magnesium 40 mg capsule,delayed release (Nexium) 20 mg PO DAILY Gastrointestinal Issue 11/30/13
acetaminophen 500 mg tablet (Tylenol Extra Strength) 1,000 mg PO Q6HPRN PRN headache/mild pain 12/11/15
metoprolol succinate 50 mg tablet,extended release 24 hr 50 mg PO BID Blood Pressure 12/11/15
multivitamin with folic acid 400 mcg tablet (Tab-A-Anabell) 1 tab PO NOON Supplement 12/11/15
L.acidoph, paracasei,B. lactis 10 billion cell capsule 1 ea PO DAILY Gastrointestinal Issue 10/31/17
albuterol sulfate 90 mcg/actuation aerosol inhaler 2 puff inhalation R Q4HPRN PRN sob 10/31/17
ezetimibe 10 mg tablet (Zetia) 10 mg PO HS High Cholesterol 10/31/17
furosemide 40 mg tablet 40 mg PO BID Fluid Retention/Swelling 10/31/17(take 1-1/2 tablets of Lasix in a.m. and 1 tablet p.m.
alprazolam 0.25 mg tablet 0.25 mg PO TID PRN anxiety 08/17/23
amlodipine 2.5 mg tablet (Norvasc) 2.5 mg PO DAILY Blood Pressure 08/17/23
calcium carbonate 500 mg calcium (1,250 mg) chewable tablet 500 mg PO BIDPRN PRN gerd 08/17/23
fluticasone propionate 50 mcg/actuation nasal spray,suspension 1 spray intranasal DAILY Congestion 08/17/23
magnesium 250 mg tablet 500 mg PO NOON Electrolyte Repletion 08/17/23
potassium 99 mg tablet 99 mg PO NOON Supplement 08/17/23
rivaroxaban 20 mg tablet (Xarelto) 20 mg PO QPM Blood Clot Prevention/Tx 08/17/23
rosuvastatin 10 mg tablet (Crestor) 10 mg PO QPM High Cholesterol 08/17/23
Home Medication Changes
furosemide 40 mg tablet 40 mg PO BID Fluid Retention/Swelling 10/31/17(take 1-1/2 tablets of Lasix in a.m. and 1 tablet p.m.
Pending Results: No
Total time spent discharging patient (in min): 45
[2023-08-19 11:41] VITALS: BP 124/61
--- NOTE | 2023-08-19 12:03 | CM ---
Addendum entered by Rosmery Stubbs 08/19/23 14:28:
Oxygen was approved for delivery and plan was to deliver oxygen to patient's home but to per Ketan his brother John switched location for to Ketan's house and son, Ketan switched oxygen delivery back to patient's home.
Home with new oxygen from [facility] and [facility].
Original Note:
leasing property manager reviewed patient's chart and met with patient and patient's home oxygen testing has been completed, script, testing, H&P, along with pulmonary notes faxed to [facility] ([employer]), waiting on [employer] to check insurance Auth.
Plan; Home with [facility] and home oxygen.
[2023-08-19] MEDS: THERAGRAN 1 TABLET PO (12:25)
[2023-08-19] MEDS: MAGNESIUM OXIDE 500 MG PO (12:25)
--- NOTE | 2023-08-19 12:41 | VNURNOTE ---
Home Health Liaison met with patient at 1045 to discuss [facility] nurse/therapy, visits, schedule and homebound status. Patient is agreeable and understands that visits at home will be 2-3 x per week to assess and teach medical management. Patient has a
scale and is able to weigh herself daily but has not kept track in past. Liaison reviewed use of HF booklet/log to keep track.
[facility] brochure provided with contact information. Patient is aware that [facility] will contact her for start of care in 1-2 days after discharge from .
[facility] referral completed in [facility].
[2023-08-19 13:14] LABS: Glucose - Point of Care 182 mg/dl (70-99)
[2023-08-19] MEDS: NOVOLOG FLEXPEN-LOW RESISTANCE 1 UNITS SC (13:32)
--- NOTE | 2023-08-19 13:49 | W.DCSUMMARY ---
Discharge Summary
Discharge Data
Date of Admission: 08/17/23
Date of Discharge: 08/19/23
-
Pending Results: No
Hospital Course
Patient is a 88-year-old female who presented with increasing dyspnea on exertion for days and she was noted to have desaturation of oxygen in the emergency room at time of presentation with an elevated proBNP of 1120 she also has a underlying
history of COPD has been diagnosed with prior history of permanent atrial fibrillation and chronic preserved EF heart failure with coronary artery disease and prior stenting symptomatology may have been also precipitated by her [employer] Day
meal (beef. She was given a dosage of IV Lasix in the emergency room with a good urine output that seems to be very dilute and presentation and she was admitted and cardiology was consulted we also consulted the pulmonary service based on her
history of COPD she was seen by the pulmonary service of Dr. Negrete who felt that there is no significant exacerbation of COPD as cause of her presentation but did concur with the need for at least nighttime oxygen therapy as this would improve
her daytime performance on exertion and improve her dyspnea. She was diuresed and has lost up to 5 pounds of water weight during hospitalization on a course of IV Lasix 40 mg twice a day she had been on a 40 mg twice a day dosage orally. A repeat
echocardiogram in comparison with labs that of last year noted preserved EF with an enlarged right ventricle and severe left atrial dilatation and moderate mitral regurg and tricuspid regurg. She was again noted to have significantly abnormal
nocturnal oximetry into the 70s and she may need an outpatient evaluation with the pulmonary service for a sleep study as an outpatient. She will most certainly need home oxygen therapy which will be set up prior to her discharge. She was
continued on metoprolol XL 50 mg twice daily along with Xarelto anticoagulation at 20 mg
At this point after her home oxygen screen and insurance authorization she can be discharged with follow-up with [facility] for home oxygen therapy set up and she will need follow-up with both cardiology and pulmonary she was again advised on a salt
restricted diet/I tried to contact family members with a discharge plan but lost connection and had to leave a voicemail with explicit instructions for ongoing care on her discharge.
Discharge Plan
-
Patient Disposition: Home with Home Care
Discharge Diagnosis/Procedures: Acute on chronic HFpEF
COPD without exacerbation
Hypoxic respiratory insufficiency
Condition: Fair
Diet: 2 Gram Sodium
Activity: As tolerated
Additional Activity: Set up home oxygen, 2 L with sleep
2 L with portable tank, activity
If possible, would like to avoid prior model and make of oxygen concentrator. Patient could not tolerate noise
Driving Restrictions: As prior to admission
Other Services: [facility] and PT
Referrals:
Michael Villafuerte I., DO [Family Provider] -
Vianey Hayward PA-C [Specified Professional Personl] - 09/08/23 10:40 am (You have a follow up visit with Dr. Miles's Vianey CEBALLOS, at the [facility] office on a day Dr. Miles is in the office. Please call with questions. )
Waqar Dalal MD [Active] - (Appt 09/[address] Gonzalez)
Additional Discharge Medication Instructions: Lasix has been increased to 60 mg in the morning and 40 mg in the evening
Prescriptions:
Continued
esomeprazole magnesium [Nexium] 40 MG capsule,delayed release(DR/EC)
20 mg PO DAILY
metoprolol succinate 50 MG tablet extended release 24 hr
50 mg PO BID
acetaminophen [Tylenol Extra Strength] 500 MG tablet
1,000 mg PO Q6HPRN PRN (Reason: headache/mild pain)
multivitamin with folic acid [Tab-A-Anabell] 1 TABLET tablet
1 tab PO NOON
albuterol sulfate 1 PUFF HFA aerosol inhaler
2 puff inhalation R Q4HPRN PRN (Reason: sob)
ezetimibe [Zetia] 10 MG tablet
10 mg PO HS
L.acidoph, paracasei,B. lactis 1 EACH capsule
1 ea PO DAILY
potassium 99 mg Tablet
99 mg PO NOON
alprazolam 0.25 mg Tablet
0.25 mg PO TID PRN (Reason: anxiety)
calcium carbonate [Tums 500] 500 mg calcium (1,250 mg) Tablet,Chewable
500 mg PO BIDPRN PRN (Reason: gerd)
magnesium 250 mg Tablet
500 mg PO NOON
fluticasone propionate 50 mcg/actuation [place],Suspension
1 spray INTRANASAL DAILY
rosuvastatin [Crestor] 10 mg Tablet
10 mg PO QPM
Xarelto 20 mg Tablet
20 mg PO QPM
amlodipine [Norvasc] 2.5 mg Tablet
2.5 mg PO DAILY
furosemide 40 MG tablet
40 mg PO BID Qty: 0 0RF
Rx Instructions:
60 mg in the morning and 40 mg evening
Discharge Orders:
Discharge Patient (As Directed); Ordered 08/19/23
Ordered By: Simon Murphy
[2023-08-19 15:18] VITALS: O2SAT 97
--- NOTE | 2023-08-19 16:31 | PTCARENOTE ---
Addendum entered by Jackie Quick RN 08/19/23 16:35:
Call placed to patient's son to inform of Dr. Bartlett's tiger text.
Original Note:
Rn flow vending machine mechanic- Patient cleared for dc/. Patient and son provided with d/c instructions. Patient and son's only question was to confirm if patient should resume metformin even though it was d/c DELI SLICER by her primary. This nurse tiger texed
Dhruv this question. As per Dr Palacios patient should follow her primary care doctor orders.
== END 2023-08-19 15:43 | disposition home health service (06) | DRG 291 ==
LOC: 4 WEST ACU 11:42
PROVIDERS: ADMITTING PHYSICIAN Internal Medicine; CONSULT PHYSICIAN Internal Medicine Cardiovascular Disease; CONSULT PHYSICIAN Internal Medicine Critical Care Medicine; EMERGENCY PHYSICIAN Emergency Medicine; FAMILY PHYSICIAN Internal Medicine
DX: I11.0 Hypertensive heart disease with heart failure (principal); I50.33 Acute on chronic diastolic (congestive) heart failure; I48.21 Permanent atrial fibrillation; Z79.01 Long term (current) use of anticoagulants; I25.10 Atherosclerotic heart disease of native coronary artery without angina pectoris; E11.9 Type 2 diabetes mellitus without complications; F41.9 Anxiety disorder, unspecified; R06.89 Other abnormalities of breathing; R09.02 Hypoxemia
CPT/HCPCS: 71046; 80048; 80053; 82962; 83036; 83880; 84443; 84484; 85025; 85027; 93005; 93306; 94762; 96374; 96375; 97165; 99285

== ENCOUNTER → 2024-01-26 14:02 | Outpatient (REF) | payer MEDICARE, OTHER, SELFPAY | LOC: HWRAD 14:02 | PROVIDERS: ATTENDING PHYSICIAN Nurse Practitioner Adult Health; FAMILY PHYSICIAN Internal Medicine | DX: M25.561 Pain in right knee (principal) | CPT/HCPCS: 73564 ==

== ENCOUNTER → 2024-03-16 09:55 | Outpatient (REF) | payer MEDICARE, OTHER, SELFPAY | LOC: PAVMRI 09:55 | PROVIDERS: ATTENDING PHYSICIAN Physical Medicine & Rehabilitation; FAMILY PHYSICIAN Internal Medicine | DX: M54.16 Radiculopathy, lumbar region (principal) | CPT/HCPCS: 72148 ==

== ENCOUNTER → 2024-12-15 12:39 | Outpatient (REF) | payer MEDICARE, OTHER, SELFPAY | LOC: HWRAD 12:39 | PROVIDERS: ATTENDING PHYSICIAN Surgery; FAMILY PHYSICIAN Internal Medicine | DX: M25.811 Other specified joint disorders, right shoulder (principal); R22.41 Localized swelling, mass and lump, right lower limb | CPT/HCPCS: 76882 ==